=== PATIENT | female | born 1940 | race African-American/Black ===

== ENCOUNTER 2018-05-01 05:37 | Outpatient (CLI) | payer MEDICARE, MEDICAID ==
[2018-05-01 13:43] LABS: Bilirubin Small (Negative); Blood, Urine Negative (Negative); Clarity CLEAR (Clear); Glucose, Urine (Dipstick) Negative (Negative); Leukocyte Moderate (Negative); Nitrite Negative (Negative); Protein, Urine (Dipstick) 30 mg/dL (Neg-Trace); Specific Gravity, Urine 1.037 (1.002-1.036)
[2018-05-01 13:44] LABS: #Eosinphils 0.1 thou/uL (0.0-0.7); #Lymphocytes 1.6 thou/uL (1.20-3.40); #Monocytes 0.5 thou/uL (0.11-0.59); #Neutrophils 4.6 thou/uL (1.40-6.50); %Basophils 0.3 % (0.0-1.0); %Eosinophils 1.5 % (0.0-10.0); %Lymphocytes 23.7 % (21.0-51.0); %Monocytes 7.4 % (0.0-10.0); %Neutrophils 67.1 % (42.0-75.0); Hemoglobin 12.1 g/dL (12.0-16.0); Mean Corpuscular HGB CONC 32.1 g/dL (32.0-36.0); Mean Corpuscular Hemoglobin 27.8 pg (27.0-31.0); Mean Corpuscular Volume 86.5 fL (78.0-98.0); Mean Platelet Volume 9.6 fL (7.4-10.4); Platelet Count 214 thou/uL (130-400); RBC Distribution Width 13.6 % (11.5-14.5); Red Blood Cell (RBC) Count 4.36 mill/uL (4.20-5.40); White Blood Cell (WBC) Count 6.8 thou/uL (4.8-10.8)
[2018-05-01 13:49] LABS: Prothrombin Time 13.5 SEC (12.0-14.7)
[2018-05-01 13:50] LABS: Pathc Cast-AUWi Flag 5.66 (0-2.49)
[2018-05-01 14:01] LABS: Bacteria/HPF 1+ HPF (None Seen); Hyaline Casts/LPF 7-10 HYALINE CAST LPF (0-3 Hyaline); Manual Microscopic Reviewed? No Path Casts Seen; Renal Epithelial None Seen HPF (0-3); Transitional Epithelial NONE SEEN HPF (0-3)
[2018-05-01 14:11] LABS: Anion Gap 14 mmol/L (10-20); BUN (Urea Nitrogen) 22 mg/dL (9.8-20.1); Calc. Creatinine Clearance 0 mL/min (70-130); Calcium 10.4 mg/dL (7.8-10.44); Carbon Dioxide 26 mmol/L (23-31); Chloride 103 mmol/L (98-107); Estimated GFR-MDRD 52; Glucose 88 mg/dL (83-110); Potassium 3.3 mmol/L (3.5-5.1); Sodium 140 mmol/L (136-145)
== END 2018-05-01 05:38 | disposition home or self-care (01) ==
LOC: LABBT 05:37
PROVIDERS: ATTEND Orthopaedic Surgery
DX: Z01.818 Encounter for other preprocedural examination (principal); M16.11 Unilateral primary osteoarthritis, right hip
CPT/HCPCS: 80048; 81001; 85025; 85610; 87086; 93005; 93010

== ENCOUNTER 2018-05-01 08:00 | Inpatient (IN) | payer MEDICARE, MEDICAID ==
--- NOTE | 2018-05-08 14:39 | HP ---
HISTORY OF PRESENT ILLNESS: The patient is a 77-year-old female with a long history of progressive degenerative arthritis of both hips, right greater than left. There has been no injury. She has had progressive problems aside rest restriction of activities and use of a walker, anti-inflammatory medications, and lifestyle adjustments. The patient is not interfering with day-to-day activities including walking, getting dressed, and sleeping. She has had previous lumbar injections by Dr. Burgos without relief. PAST HISTORY: The patient is otherwise in good health. She has a history of hyperlipidemia, hypertension, previous breast cancer, and reflux. CURRENT MEDICATIONS: Include: 1. Lisinopril. 2. Norvasc. 3. Ultracet. 4. Hydrochlorothiazide. 5. Gabapentin. ALLERGIES: SHE IS ALLERGIC TO STATINS. FAMILY HISTORY: Otherwise unremarkable. SOCIAL HISTORY: Otherwise unremarkable. REVIEW OF SYSTEMS: Otherwise unremarkable. PHYSICAL EXAMINATION: GENERAL: Elderly female. HEENT: Unremarkable. NECK: Supple. CHEST: Clear. HEART: Regular rate and rhythm. ABDOMEN: Soft and nontender. PELVIC: Deferred. RECTAL: Deferred. BREASTS: Deferred. EXTREMITIES: Pertinent findings to her hips; leg lengths were equal. There is tenderness in the anterior hip bilaterally right greater than left. There is decreased range of motion and groin pain with internal rotation of both hips, right greater than left. There is an antalgic gait. NEUROVASCULAR: Intact. Straight leg raising is negative. Reflexes are symmetrically diminished. DIAGNOSTIC STUDIES: X-rays of the pelvis and both hips reveal severity of degenerative arthritis of both hips with no joint space remaining, quite changes are slightly greater on the right. There has been significant progression from previous x-rays done in 2016. IMPRESSION: 1. Degenerative arthritis of both hips, right greater than left. 2. History of hypertension. PLAN: Right total hip replacement. She will eventually require staged left total hip replacement. The nature of the surgery, length, recovery, and potential complications such as infection, loss of motion, incomplete relief, neurovascular injury, thromboembolic phenomena, leg-length discrepancy, possible transfusion, and need for revision have been discussed in detail. Job ID: [id number]
[2018-05-12] MEDS ORDERED: Sodium Chloride 0.9% 100 ML ONE (07:28)
[2018-05-12] MEDS ORDERED: Tranexamic Acid 1,000 MG/10 ML VIAL ONE ×2 (07:28→11:57)
[2018-05-12] MEDS ORDERED: CEFAZOLIN 2 GM/50 ML BAG ONE (07:28)
[2018-05-12] MEDS ORDERED: diphenhydrAMINE 50 MG/ML VIAL IM PRN (08:15)
[2018-05-12] MEDS ORDERED: Hydrocerin (Eucerin) Cream 120 gm Jar TOP PRN (08:15)
[2018-05-12] MEDS ORDERED: Naloxone HCl 0.4 mg/ml Vial IV PRN (08:15)
[2018-05-12] MEDS ORDERED: traMADol HCl 50 MG TAB PO PRN ×2 (08:15)
[2018-05-12] MEDS ORDERED: diphenhydrAMINE 25 MG CAP PO PRN ×2 (08:15→14:48)
[2018-05-12] MEDS ORDERED: Promethazine HCl 25 MG/ML VIAL IM PRN ×2 (08:15→11:58)
[2018-05-12] MEDS ORDERED: diphenhydrAMINE 50 MG/ML VIAL IVP PRN (08:15)
[2018-05-12] MEDS ORDERED: Zolpidem Tartrate 5 MG TAB PO PRN ×2 (08:15→14:48)
[2018-05-12] MEDS ORDERED: Ondansetron PF 4 MG/2 ML Vial IVP PRN ×2 (08:15→14:48)
[2018-05-12] MEDS ORDERED: Promethazine HCl 25 MG SUPP PR PRN (08:15)
[2018-05-12] MEDS ORDERED: Naloxone HCl 0.4 mg/ml Vial IVP PRN (08:15)
[2018-05-12] MEDS ORDERED: Bupivacaine 0.25% 10 ML VIAL EPIDURAL PRN (08:15)
[2018-05-12] MEDS ORDERED: Ropivacaine 0.2% HCl/PF 20 ML ONE (09:52)
[2018-05-12] MEDS ORDERED: Fentanyl 100 MCG/2 ML VIAL ONE ×2 (11:57→12:42)
[2018-05-12] MEDS ORDERED: Promethazine HCl 25 MG/ML VIAL SLOW IVP PRN ×2 (11:58→14:48)
[2018-05-12] MEDS ORDERED: Ondansetron HCl/PF 4 MG/2 ML Vial IVP PRN (11:58)
[2018-05-12] MEDS ORDERED: Fentanyl/Bupivacaine 100 ML EPIDURAL ONE (12:00)
[2018-05-12] MEDS ORDERED: Tranexamic Acid 1,000 MG in Sodium Chloride 0.9% 100 ML IVPB SCH ×2 (12:00→16:15)
[2018-05-12] MEDS ORDERED: ePHEDrine/0.9% NaCl/PF SYRINGE 50 mg/10 ml ONE (13:21)
--- NOTE | 2018-05-12 14:24 | RAD ---
TWO VIEWS RIGHT HIP: INDICATION: Postoperative evaluation. FINDINGS: There is a right hip arthroplasty without acute hardware complication. Expected procedural findings are seen regionally. IMPRESSION: Postoperative right hip. POS: [facility]
[2018-05-12] MEDS ORDERED: Fentanyl 100 MCG/2 ML VIAL SLOW IVP PRN ×2 (14:48)
[2018-05-12] MEDS ORDERED: CEFAZOLIN/Water 2 GM/20 ML SYRINGE SLOW IVP SCH (14:48)
[2018-05-12] MEDS ORDERED: HYDROcodone/Acetaminophen 10/325 mg Tablet PO PRN ×2 (14:48)
[2018-05-12] MEDS ORDERED: Vancomycin HCl 1 GM in Sodium Chloride 0.9% 250 ML 300 ML IVPB SCH (14:48)
[2018-05-12] MEDS ORDERED: Acetaminophen 325 MG TAB PO PRN (14:48)
[2018-05-12 15:24] VITALS: BMI 28.1
--- NOTE | 2018-05-12 16:05 | OP ---
DATE OF PROCEDURE: 05/12/2018 PROCESS MAINTENANCE TECHNICIAN: Sara Lance PA-C ANESTHESIA: General plus epidural. PREOPERATIVE DIAGNOSIS: Degenerative arthritis, right hip. POSTOPERATIVE DIAGNOSIS: Degenerative arthritis, right hip. PROCEDURES PERFORMED: Right total hip replacement with uncemented Vandemere titanium acetabular component 58 mm with X3 polyethylene insert, and uncemented Vandemere Accolade femoral stem 3.5 with 132 degree neck angle and -5 mm neck length, 36 mm metal head, and repair of hairline iatrogenic fracture of calcar of the femur with D[employer] Cable. DESCRIPTION OF PROCEDURE: After satisfactory anesthesia was induced in the supine position, the patient was placed in the lateral decubitus position. This position was held with hip positioning device. Sequential compression device was used on the nonoperative leg throughout the procedure. The patient's right hip was then prepped and draped in routine sterile fashion. Hip was approached through a lateral curvilinear incision centered over the greater trochanter, carried down through the subcutaneous tissues, bleeding points were controlled with Bovie cautery. IT band and gluteal fascia were split in-line with the skin incision. A direct lateral approach to the hip joint was accomplished by dividing the anterior third of the gluteus medius and minimus tendons with the Bovie cautery and reflecting this as a single flap anteromedially along with the vastus lateralis. Anterior capsulectomy was performed. The hip dislocated anteriorly. There was marked degenerative arthritis of the hip with large areas of exposed bone. Femoral neck was osteotomized with oscillating saw using a trial prosthesis as a guide. The acetabulum was exposed and cleaned of all soft tissue and debris and large rim osteophytes. It was then reamed in sequence have been subchondral bone to a total of 57 mm. It was felt that a 58 mm Vandemere titanium outer shell could be placed in a press-fit fashion. It was hammered into position. It was good fit stability of the rim. Few more small osteophytes were removed from the rim and the permanent X3 polyethylene liner was snapped in position and the proximal femur exposed. It was then rasped in sequence to accept a #3.5 Accolate femoral rasp. Trial reduction with the 132 degree neck angle trunnion and a -5 mm 36 mm neck length femoral head gave appropriate size fit and stability. The trial components removed. The permanent 3.5 Accolade femoral stem was then hammered in position. During the final seating, a small hairline fracture occurred along the calcar area. This extended perhaps 1 to 1.5 cm. Did not appear to go down the shaft. It appeared to be stable, but I elected to fix this with a [employer] eGifter cable using the appropriate guide cerclage cable was placed and then tightened and the crimper used to hold the fixation in place and then the two ends of the cable were cut off using the appropriate instrument. This appeared to give good stable fixation. The permanent -5 mm neck length, 36 mm metal head was then placed on the trunnion. Hip again reduced and found to be stable. The femoral component was stable as was the small hairline fracture site. The wound was copiously irrigated with pulsatile lavage. The abductors were repaired with interrupted #2 Vicryl. IT band and gluteal fascia were closed with interrupted #2 Vicryl and running #2 Quill. Subcutaneous tissues were closed with a running 0 Quill suture and the skin closed with running subcuticular 3-0 Monoderm and SurgiSeal skin adhesive. Sterile dressing was applied. The patient turned in supine position and a pillow placed between her legs. Sequential compression device was applied to the operative leg and she was awakened, taken to the recovery room in stable condition. There were no apparent intraoperative complications other than the small iatrogenic fracture of the femur, which was repaired as mentioned above. Estimated blood loss was 250 mL. She was taken to recovery room in stable condition. Job ID: [id number]
[2018-05-12] MEDS ORDERED: Amlodipine 10 MG TAB PO SCH (16:15)
[2018-05-12] MEDS ORDERED: Aspirin 81 mg Enteric Coated Tablet PO SCH (16:15)
[2018-05-12] MEDS ORDERED: Ferrous Gluconate 324 MG TAB PO SCH (16:30)
[2018-05-12] MEDS: CEFAZOLIN 2 GM/50 ML-DEXTROSE 2 GM in Premix Bag 1 BAG IVPB SCH (16:31)
[2018-05-12] MEDS: Sodium Chloride 0.9% 1,000 ML IV SCH (16:31)
[2018-05-12] MEDS: HYDROcodone/Acetaminophen 5/325 mg Tablet PO PRN ×2 (16:32→23:40)
[2018-05-12] MEDS ORDERED: Rocuronium Bromide 10 MG/ML (10ML VIAL) ONE (16:35)
[2018-05-12] MEDS ORDERED: PHENYLEPHRINE-NS 100 MCG/ML 10 ML SYRINGE ONE (16:35)
[2018-05-12] MEDS ORDERED: Ondansetron PF 4 MG/2 ML Vial ONE (16:35)
[2018-05-12] MEDS ORDERED: Dexamethasone 20 MG/5 ML VIAL ONE (16:35)
[2018-05-12] MEDS ORDERED: Glycopyrrolate 0.2 MG/ML 5 ML SYRINGE ONE (16:35)
[2018-05-12] MEDS ORDERED: PROPOFOL 200 MG/20 ML VIAL ONE (16:35)
[2018-05-12] MEDS ORDERED: Lidocaine 1% PF 5 ML VIAL ONE (16:35)
[2018-05-12] MEDS ORDERED: Vancomycin HCl 1 GM in Premix Bag 1 BAG IVPB SCH (20:00)
[2018-05-12] MEDS: Aspirin 81 mg Enteric Coated Tablet PO SCH (20:12)
[2018-05-12] MEDS: Rosuvastatin 20 MG TAB PO SCH (20:12)
[2018-05-13] MEDS: CEFAZOLIN 2 GM/50 ML-DEXTROSE 2 GM in Premix Bag 1 BAG IVPB SCH (00:30)
[2018-05-13] MEDS: Sodium Chloride 0.9% 1,000 ML IV SCH ×2 (00:33→09:29)
[2018-05-13] MEDS: Fentanyl/Bupivacaine 100 ML EPIDURAL SCH ×2 (04:18→21:42)
[2018-05-13] MEDS: HYDROcodone/Acetaminophen 5/325 mg Tablet PO PRN ×4 (05:12→22:09)
[2018-05-13 06:41] LABS: Hemoglobin 9.1 g/dL (12.0-16.0); Mean Corpuscular HGB CONC 32.1 g/dL (32.0-36.0); Mean Corpuscular Volume 87.1 fL (78.0-98.0); Mean Platelet Volume 9.4 fL (7.4-10.4); Platelet Count 158 thou/uL (130-400); RBC Distribution Width 13.4 % (11.5-14.5); Red Blood Cell (RBC) Count 3.27 mill/uL (4.20-5.40); White Blood Cell (WBC) Count 8.3 thou/uL (4.8-10.8)
--- NOTE | 2018-05-13 07:23 | PDOC.PN ---
- Subjective Encounter Start Date: 05/13/18 Encounter Start Time: 08:10 -: old records requested/rev consulted for medical management admitted for hip replacement pain controlled with pain meds Patient seen and examined. No new complaints. No overnight events - Objective MAR Reviewed: Yes Vital Signs & Weight: Vital Signs (12 hours) Temp Pulse Resp BP Pulse Ox 05/13/18 04:30 98.5 F 88 16 144/61 H 99 05/13/18 00:00 99.2 F 87 18 146/62 H 99 05/12/18 20:00 99.5 F 85 18 125/60 98 Weight Weight 169 lb I&O: 05/12/18 05/13/18 05/14/18 06:59 06:59 06:59 Intake Total 1900 Output Total 1000 Balance 900 Result Diagrams: 05/13/18 06:13 Additional Labs: old [facility] record reviewed Radiology Reviewed by me: Yes (hip xray) Phys Exam - Physical Examination Constitutional: NAD HEENT: PERRLA, moist MMs, sclera anicteric Neck: no JVD, supple Respiratory: no wheezing, no rales, no rhonchi Cardiovascular: RRR, no significant murmur, no rub Gastrointestinal: soft, non-tender, no distention, positive bowel sounds Musculoskeletal: no edema, pulses present virk+, surgical site with dressing, epidural in place Neurological: non-focal, normal sensation, moves all 4 limbs Lymphatic: no nodes Psychiatric: normal affect, A&O x 3 Skin: no rash, normal turgor Dx/Plan (1) Status post total hip replacement, right Code(s): Z96.641 - PRESENCE OF RIGHT ARTIFICIAL HIP JOINT Status: Acute (2) Anemia, normocytic normochromic Code(s): D64.9 - ANEMIA, UNSPECIFIED Status: Chronic (3) Dyslipidemia Code(s): E78.5 - HYPERLIPIDEMIA, UNSPECIFIED Status: Chronic (4) Hypertension Code(s): I10 - ESSENTIAL (PRIMARY) HYPERTENSION Status: Chronic - Plan cont current plan of care, PT/OT * continue aspirin for DVT prophylaxis * add pepcid for GI prophylaxis * code status- full code * medication reviewed as below * symptomatic treatment * pain controlled * epidural as per anesthesia * PT/OT as per Ju protocol * home medication reconciled. Review of Systems - Review of Systems ENT: negative: Ear Pain, Ear Discharge, Nose Pain, Nose Discharge, Nose Congestion, Mouth Pain, Mouth Swelling, Throat Pain, Throat Swelling, Other Respiratory: negative: Cough, Dry, Shortness of Breath, Hemoptysis, SOB with Excertion, Pleuritic Pain, Sputum, Wheezing Cardiovascular: negative: chest pain, palpitations, orthopnea, paroxysmal nocturnal dyspnea, edema, light headedness, other Gastrointestinal: negative: Nausea, Vomiting, Abdominal Pain, Diarrhea, Constipation, Melena, Hematochezia, Other Genitourinary: negative: Dysuria, Frequency, Incontinence, Hematuria, Retention , Other Musculoskeletal: negative: Neck Pain, Shoulder Pain, Arm Pain, Back Pain, Hand Pain, Leg Pain, Foot Pain, Other Skin: negative: Rash, Lesions, Baljeet, Bruising, Other - Medications/Allergies Allergies/Adverse Reactions: Allergies Allergy/AdvReac Type Severity Reaction Status Date / Time No Known Allergies Allergy Verified 05/12/18 16:46 Medications: Current Medications Acetaminophen (Tylenol) 650 mg PO Q4H PRN PRN Reason: Headache/Fever or Pain Hydrocodone Bitart/Acetaminophen ([place] 5/325) 1 tab PO Q4H PRN PRN Reason: Mild Pain 0-3 Last Admin: 05/12/18 16:32 Dose: 1 tab Hydrocodone Bitart/Acetaminophen ([place] 5/325) 2 tab PO Q4H PRN PRN Reason: For Moderate Pain 4-6 Last Admin: 05/13/18 05:12 Dose: 2 tab Amlodipine Besylate (Norvasc) 10 mg PO DAILY [facility] Aspirin (Ecotrin) 81 mg PO BID [facility] Last Admin: 05/12/18 20:12 Dose: 81 mg Diphenhydramine HCl (Benadryl) 25 mg PO Q3H PRN PRN Reason: Itching Diphenhydramine HCl (Benadryl) 25 mg IM Q3H PRN PRN Reason: Itching Diphenhydramine HCl (Benadryl) 25 mg IVP Q3H PRN PRN Reason: Itching Diphenhydramine HCl (Benadryl) 25 mg PO Q6H PRN PRN Reason: Itching Emollient Cream (Hydrocerin Cream) 0 gm TOP PRN PRN PRN Reason: Itching Ferrous Gluconate (Fergon) 324 mg PO BID [facility] Hydrochlorothiazide (Hydrochlorothiazide) 12.5 mg PO DAILY [facility] Fentanyl Citrate (Fentanyl/Bupivacaine) 100 mls @ 0 mls/hr EPIDURAL INF [facility] Last Admin: 05/13/18 04:18 Dose: 100 mls Sodium Chloride (Normal Saline 0.9%) 1,000 mls @ 100 mls/hr IV .Q10H [facility] Last Admin: 05/13/18 00:33 Dose: 1,000 mls Iron/Minerals/Multivitamins (Theragran M) 1 tab PO DAILY [facility] Miscellaneous Information (Communication Order-Pharmacy) 1 each FS ASDIR [facility] Naloxone HCl (Narcan) 0.2 mg IV Q5MIN PRN PRN Reason: RR <=8 OR OBTUNDED/UNAROUSABLE Naloxone HCl (Narcan) 0.1 mg IVP Q15MIN PRN PRN Reason: URINARY RETENTION Ondansetron HCl (Zofran) 4 mg IVP Q6H PRN PRN Reason: Nausea/Vomiting Promethazine HCl (Phenergan) 12.5 mg IM Q4H PRN PRN Reason: Nausea Promethazine HCl (Phenergan Suppository) 25 mg IN Q4H PRN PRN Reason: Nausea/Vomiting Rosuvastatin Calcium (Crestor) 40 mg PO HS [facility] Last Admin: 05/12/18 20:12 Dose: 40 mg Senna/Docusate Sodium (Senokot S) 2 tab PO BID [facility] Sodium Chloride (Flush - Normal Saline) 10 ml IVF PRN PRN PRN Reason: Saline Flush Tramadol HCl (Ultram) 50 mg PO Q6H PRN PRN Reason: Mild Pain 1-3 Tramadol HCl (Ultram) 100 mg PO Q6H PRN PRN Reason: Moderate Pain 4-6 Zolpidem Tartrate (Ambien) 5 mg PO HSPRN PRN PRN Reason: Insomnia
[2018-05-13] MEDS: Senokot S 8.6-50 MG TAB PO SCH ×2 (09:17→21:49)
[2018-05-13] MEDS: Multivitamin W/ Minerals 1 TAB PO SCH (09:17)
[2018-05-13] MEDS: Amlodipine 10 MG TAB PO SCH (09:18)
[2018-05-13] MEDS: Hydrochlorothiazide 25 MG TAB PO SCH (09:18)
[2018-05-13] MEDS: Ferrous Gluconate 324 MG TAB PO SCH ×2 (09:18→21:49)
[2018-05-13] MEDS: Aspirin 81 mg Enteric Coated Tablet PO SCH ×2 (15:47→21:48)
[2018-05-13] MEDS ORDERED: Lorazepam 1 MG TAB PO PRN (20:38)
[2018-05-13] MEDS ORDERED: Lorazepam 2 MG/ML VIAL SLOW IVP SCH (20:45)
[2018-05-13] MEDS: Rosuvastatin 20 MG TAB PO SCH (21:48)
[2018-05-14] MEDS: Sodium Chloride 0.9% 1,000 ML IV SCH ×3 (02:42→19:57)
[2018-05-14 07:50] LABS: Hemoglobin 8.7 g/dL (12.0-16.0); Mean Corpuscular HGB CONC 31.7 g/dL (32.0-36.0); Mean Corpuscular Hemoglobin 27.7 pg (27.0-31.0); Mean Corpuscular Volume 87.3 fL (78.0-98.0); Mean Platelet Volume 9.8 fL (7.4-10.4); Platelet Count 160 thou/uL (130-400); RBC Distribution Width 13.6 % (11.5-14.5); Red Blood Cell (RBC) Count 3.14 mill/uL (4.20-5.40); White Blood Cell (WBC) Count 9.7 thou/uL (4.8-10.8)
[2018-05-14] MEDS: Aspirin 81 mg Enteric Coated Tablet PO SCH ×2 (07:57→20:03)
[2018-05-14] MEDS: Senokot S 8.6-50 MG TAB PO SCH ×2 (07:57→20:03)
[2018-05-14] MEDS: Amlodipine 10 MG TAB PO SCH (07:58)
[2018-05-14] MEDS: Hydrochlorothiazide 25 MG TAB PO SCH (07:58)
[2018-05-14] MEDS: Ferrous Gluconate 324 MG TAB PO SCH ×2 (07:59→20:03)
[2018-05-14] MEDS: Multivitamin W/ Minerals 1 TAB PO SCH (07:59)
[2018-05-14] MEDS: HYDROcodone/Acetaminophen 5/325 mg Tablet PO PRN ×3 (08:01→20:02)
--- NOTE | 2018-05-14 11:06 | PDOC.PN ---
- Subjective Encounter Start Date: 05/14/18 Encounter Start Time: 08:10 Patient seen and examined. No new complaints. No overnight events - Objective Resuscitation Status - Order Detail: 05/13/18 10:32 Resuscitation Status Routine Resuscitation Status: FULL: Full Resuscitation MAR Reviewed: Yes Vital Signs & Weight: Vital Signs (12 hours) Temp Pulse Resp BP BP Pulse Ox 05/14/18 08:00 98 05/14/18 07:58 70 144/62 H 05/14/18 07:34 99.4 F 84 16 144/62 H 98 05/14/18 07:08 97 05/14/18 04:16 99.4 F 70 16 117/62 97 05/14/18 00:00 99.4 F 83 18 147/64 H 96 Weight Admit Weight 169 lb Weight 169 lb I&O: 05/13/18 05/14/18 05/15/18 06:59 06:59 06:59 Intake Total 1900 1300 480 Output Total 1000 900 550 Balance 900 400 -70 Result Diagrams: 05/14/18 06:11 Phys Exam - Physical Examination Constitutional: NAD HEENT: PERRLA, moist MMs, sclera anicteric Neck: no JVD, supple Respiratory: no wheezing, no rales, no rhonchi Cardiovascular: RRR, no significant murmur, no rub Gastrointestinal: soft, non-tender, no distention, positive bowel sounds Musculoskeletal: no edema, pulses present Neurological: non-focal, normal sensation, moves all 4 limbs Lymphatic: no nodes Psychiatric: normal affect, A&O x 3 Skin: no rash, normal turgor Dx/Plan (1) Status post total hip replacement, right Code(s): Z96.641 - PRESENCE OF RIGHT ARTIFICIAL HIP JOINT Status: Acute (2) Anemia, normocytic normochromic Code(s): D64.9 - ANEMIA, UNSPECIFIED Status: Chronic (3) Dyslipidemia Code(s): E78.5 - HYPERLIPIDEMIA, UNSPECIFIED Status: Chronic (4) Hypertension Code(s): I10 - ESSENTIAL (PRIMARY) HYPERTENSION Status: Chronic - Plan cont current plan of care, PT/OT * continue aspirin for DVT prophylaxis * medication reviewed as below * symptomatic treatment * pain controlled * epidural as per anesthesia * PT/OT as per Ju protocol. * discharge as per primary team Review of Systems - Review of Systems ENT: negative: Ear Pain, Ear Discharge, Nose Pain, Nose Discharge, Nose Congestion, Mouth Pain, Mouth Swelling, Throat Pain, Throat Swelling, Other Respiratory: negative: Cough, Dry, Shortness of Breath, Hemoptysis, SOB with Excertion, Pleuritic Pain, Sputum, Wheezing Cardiovascular: negative: chest pain, palpitations, orthopnea, paroxysmal nocturnal dyspnea, edema, light headedness, other Gastrointestinal: negative: Nausea, Vomiting, Abdominal Pain, Diarrhea, Constipation, Melena, Hematochezia, Other Genitourinary: negative: Dysuria, Frequency, Incontinence, Hematuria, Retention , Other Musculoskeletal: negative: Neck Pain, Shoulder Pain, Arm Pain, Back Pain, Hand Pain, Leg Pain, Foot Pain, Other Skin: negative: Rash, Lesions, Baljeet, Bruising, Other - Medications/Allergies Allergies/Adverse Reactions: Allergies Allergy/AdvReac Type Severity Reaction Status Date / Time No Known Allergies Allergy Verified 05/12/18 16:46 Medications: Current Medications Acetaminophen (Tylenol) 650 mg PO Q4H PRN PRN Reason: Headache/Fever or Pain Hydrocodone Bitart/Acetaminophen ([place] 5/325) 1 tab PO Q4H PRN PRN Reason: Mild Pain 0-3 Last Admin: 05/14/18 08:01 Dose: 1 tab Hydrocodone Bitart/Acetaminophen ([place] 5/325) 2 tab PO Q4H PRN PRN Reason: For Moderate Pain 4-6 Last Admin: 05/13/18 22:09 Dose: 2 tab Amlodipine Besylate (Norvasc) 10 mg PO DAILY [facility] Last Admin: 05/14/18 07:58 Dose: 10 mg Aspirin (Ecotrin) 81 mg PO BID [facility] Last Admin: 05/14/18 07:57 Dose: 81 mg Diphenhydramine HCl (Benadryl) 25 mg PO Q3H PRN PRN Reason: Itching Diphenhydramine HCl (Benadryl) 25 mg IM Q3H PRN PRN Reason: Itching Diphenhydramine HCl (Benadryl) 25 mg IVP Q3H PRN PRN Reason: Itching Diphenhydramine HCl (Benadryl) 25 mg PO Q6H PRN PRN Reason: Itching Emollient Cream (Hydrocerin Cream) 0 gm TOP PRN PRN PRN Reason: Itching Ferrous Gluconate (Fergon) 324 mg PO BID [facility] Last Admin: 05/14/18 07:59 Dose: 324 mg Hydrochlorothiazide (Hydrochlorothiazide) 12.5 mg PO DAILY [facility] Last Admin: 05/14/18 07:58 Dose: 12.5 mg Fentanyl Citrate (Fentanyl/Bupivacaine) 100 mls @ 0 mls/hr EPIDURAL INF [facility] Last Admin: 05/13/18 21:42 Dose: 100 mls Sodium Chloride (Normal Saline 0.9%) 1,000 mls @ 100 mls/hr IV .Q10H [facility] Last Admin: 05/14/18 02:42 Dose: Not Given Iron/Minerals/Multivitamins (Theragran M) 1 tab PO DAILY [facility] Last Admin: 05/14/18 07:59 Dose: 1 tab Lorazepam (Ativan) 1 mg PO Q6H PRN PRN Reason: Anxiety/Agitation Miscellaneous Information (Communication Order-Pharmacy) 1 each FS ASDIR [facility] Naloxone HCl (Narcan) 0.2 mg IV Q5MIN PRN PRN Reason: RR <=8 OR OBTUNDED/UNAROUSABLE Naloxone HCl (Narcan) 0.1 mg IVP Q15MIN PRN PRN Reason: URINARY RETENTION Ondansetron HCl (Zofran) 4 mg IVP Q6H PRN PRN Reason: Nausea/Vomiting Promethazine HCl (Phenergan) 12.5 mg IM Q4H PRN PRN Reason: Nausea Promethazine HCl (Phenergan Suppository) 25 mg [place] Q4H PRN PRN Reason: Nausea/Vomiting Rosuvastatin Calcium (Crestor) 40 mg PO HS [facility] Last Admin: 05/13/18 21:48 Dose: 40 mg Senna/Docusate Sodium (Senokot S) 2 tab PO BID [facility] Last Admin: 05/14/18 07:57 Dose: 2 tab Sodium Chloride (Flush - Normal Saline) 10 ml IVF PRN PRN PRN Reason: Saline Flush Tramadol HCl (Ultram) 50 mg PO Q6H PRN PRN Reason: Mild Pain 1-3 Tramadol HCl (Ultram) 100 mg PO Q6H PRN PRN Reason: Moderate Pain 4-6 Zolpidem Tartrate (Ambien) 5 mg PO HSPRN PRN PRN Reason: Insomnia
[2018-05-14] MEDS: Rosuvastatin 20 MG TAB PO SCH (20:03)
[2018-05-15] MEDS: HYDROcodone/Acetaminophen 5/325 mg Tablet PO PRN (02:53)
[2018-05-15] MEDS: Sodium Chloride 0.9% 1,000 ML IV SCH (05:12)
[2018-05-15 05:15] VITALS: TEMP 98.6
[2018-05-15 08:13] VITALS: BP 147/58
[2018-05-15] MEDS: Hydrochlorothiazide 25 MG TAB PO SCH (08:16)
[2018-05-15] MEDS: Multivitamin W/ Minerals 1 TAB PO SCH (08:17)
[2018-05-15] MEDS: Senokot S 8.6-50 MG TAB PO SCH ×2 (08:18→08:22)
[2018-05-15] MEDS: Ferrous Gluconate 324 MG TAB PO SCH (08:18)
[2018-05-15] MEDS: Aspirin 81 mg Enteric Coated Tablet PO SCH (08:18)
[2018-05-15] MEDS: Amlodipine 10 MG TAB PO SCH (08:18)
[2018-05-15 08:21] LABS: Hemoglobin 9.8 g/dL (12.0-16.0); Mean Corpuscular HGB CONC 31.9 g/dL (32.0-36.0); Mean Corpuscular Hemoglobin 28.1 pg (27.0-31.0); Mean Corpuscular Volume 88.2 fL (78.0-98.0); Mean Platelet Volume 10.2 fL (7.4-10.4); Platelet Count 157 thou/uL (130-400); RBC Distribution Width 13.4 % (11.5-14.5); Red Blood Cell (RBC) Count 3.49 mill/uL (4.20-5.40); White Blood Cell (WBC) Count 8.9 thou/uL (4.8-10.8)
--- NOTE | 2018-05-15 10:22 | PDOC.PN ---
- Subjective Encounter Start Date: 05/15/18 Encounter Start Time: 08:20 Patient seen and examined. No new complaints. No overnight events - Objective Resuscitation Status - Order Detail: 05/13/18 10:32 Resuscitation Status Routine Resuscitation Status: FULL: Full Resuscitation MAR Reviewed: Yes Vital Signs & Weight: Vital Signs (12 hours) Temp Pulse Resp BP BP Pulse Ox 05/15/18 08:18 87 147/58 H 05/15/18 07:35 98.6 F 87 18 147/58 H 97 05/15/18 04:00 98.6 F 89 16 129/62 96 Weight Admit Weight 169 lb Weight 169 lb I&O: 05/14/18 05/15/18 05/16/18 06:59 06:59 06:59 Intake Total 1300 1230 Output Total 900 1850 Balance 400 -620 Result Diagrams: 05/15/18 08:05 Phys Exam - Physical Examination Constitutional: NAD HEENT: PERRLA, moist MMs, sclera anicteric Neck: no JVD, supple Respiratory: no wheezing, no rales, no rhonchi Cardiovascular: RRR, no significant murmur, no rub Gastrointestinal: soft, non-tender, no distention, positive bowel sounds Musculoskeletal: no edema, pulses present Neurological: non-focal, normal sensation, moves all 4 limbs Lymphatic: no nodes Psychiatric: normal affect, A&O x 3 Skin: no rash, normal turgor Dx/Plan (1) Status post total hip replacement, right Code(s): Z96.641 - PRESENCE OF RIGHT ARTIFICIAL HIP JOINT Status: Acute (2) Anemia, normocytic normochromic Code(s): D64.9 - ANEMIA, UNSPECIFIED Status: Chronic (3) Dyslipidemia Code(s): E78.5 - HYPERLIPIDEMIA, UNSPECIFIED Status: Chronic (4) Hypertension Code(s): I10 - ESSENTIAL (PRIMARY) HYPERTENSION Status: Chronic - Plan cont current plan of care * medication reviewed as below * symptomatic treatment * see discharge paulo. Review of Systems - Review of Systems ENT: negative: Ear Pain, Ear Discharge, Nose Pain, Nose Discharge, Nose Congestion, Mouth Pain, Mouth Swelling, Throat Pain, Throat Swelling, Other Respiratory: negative: Cough, Dry, Shortness of Breath, Hemoptysis, SOB with Excertion, Pleuritic Pain, Sputum, Wheezing Cardiovascular: negative: chest pain, palpitations, orthopnea, paroxysmal nocturnal dyspnea, edema, light headedness, other Gastrointestinal: negative: Nausea, Vomiting, Abdominal Pain, Diarrhea, Constipation, Melena, Hematochezia, Other Genitourinary: negative: Dysuria, Frequency, Incontinence, Hematuria, Retention , Other Musculoskeletal: negative: Neck Pain, Shoulder Pain, Arm Pain, Back Pain, Hand Pain, Leg Pain, Foot Pain, Other Skin: negative: Rash, Lesions, Baljeet, Bruising, Other - Medications/Allergies Allergies/Adverse Reactions: Allergies Allergy/AdvReac Type Severity Reaction Status Date / Time No Known Allergies Allergy Verified 05/12/18 16:46 Medications: Current Medications Acetaminophen (Tylenol) 650 mg PO Q4H PRN PRN Reason: Headache/Fever or Pain Hydrocodone Bitart/Acetaminophen ([place] 5/325) 1 tab PO Q4H PRN PRN Reason: Mild Pain 0-3 Last Admin: 05/14/18 08:01 Dose: 1 tab Hydrocodone Bitart/Acetaminophen ([place] 5/325) 2 tab PO Q4H PRN PRN Reason: For Moderate Pain 4-6 Last Admin: 05/15/18 02:53 Dose: 2 tab Amlodipine Besylate (Norvasc) 10 mg PO DAILY [facility] Last Admin: 05/15/18 08:18 Dose: 10 mg Aspirin (Ecotrin) 81 mg PO BID [facility] Last Admin: 05/15/18 08:18 Dose: 81 mg Diphenhydramine HCl (Benadryl) 25 mg PO Q3H PRN PRN Reason: Itching Diphenhydramine HCl (Benadryl) 25 mg IM Q3H PRN PRN Reason: Itching Diphenhydramine HCl (Benadryl) 25 mg IVP Q3H PRN PRN Reason: Itching Diphenhydramine HCl (Benadryl) 25 mg PO Q6H PRN PRN Reason: Itching Emollient Cream (Hydrocerin Cream) 0 gm TOP PRN PRN PRN Reason: Itching Ferrous Gluconate (Fergon) 324 mg PO BID [facility] Last Admin: 05/15/18 08:18 Dose: 324 mg Hydrochlorothiazide (Hydrochlorothiazide) 12.5 mg PO DAILY [facility] Last Admin: 05/15/18 08:16 Dose: 12.5 mg Fentanyl Citrate (Fentanyl/Bupivacaine) 100 mls @ 0 mls/hr EPIDURAL INF [facility] Last Admin: 05/13/18 21:42 Dose: 100 mls Sodium Chloride (Normal Saline 0.9%) 1,000 mls @ 100 mls/hr IV .Q10H [facility] Last Admin: 05/15/18 05:12 Dose: Not Given Iron/Minerals/Multivitamins (Theragran M) 1 tab PO DAILY [facility] Last Admin: 05/15/18 08:17 Dose: 1 tab Lorazepam (Ativan) 1 mg PO Q6H PRN PRN Reason: Anxiety/Agitation Miscellaneous Information (Communication Order-Pharmacy) 1 each FS ASDIR [facility] Naloxone HCl (Narcan) 0.2 mg IV Q5MIN PRN PRN Reason: RR <=8 OR OBTUNDED/UNAROUSABLE Naloxone HCl (Narcan) 0.1 mg IVP Q15MIN PRN PRN Reason: URINARY RETENTION Ondansetron HCl (Zofran) 4 mg IVP Q6H PRN PRN Reason: Nausea/Vomiting Promethazine HCl (Phenergan) 12.5 mg IM Q4H PRN PRN Reason: Nausea Promethazine HCl (Phenergan Suppository) 25 mg NM Q4H PRN PRN Reason: Nausea/Vomiting Rosuvastatin Calcium (Crestor) 40 mg PO HS [facility] Last Admin: 05/14/18 20:03 Dose: 40 mg Senna/Docusate Sodium (Senokot S) 2 tab PO BID [facility] Last Admin: 05/15/18 08:22 Dose: Not Given Sodium Chloride (Flush - Normal Saline) 10 ml IVF PRN PRN PRN Reason: Saline Flush Tramadol HCl (Ultram) 50 mg PO Q6H PRN PRN Reason: Mild Pain 1-3 Tramadol HCl (Ultram) 100 mg PO Q6H PRN PRN Reason: Moderate Pain 4-6 Zolpidem Tartrate (Ambien) 5 mg PO HSPRN PRN PRN Reason: Insomnia
--- NOTE | 2018-05-15 11:44 | DIS ---
DATE OF ADMISSION: 05/12/2018 DATE OF DISCHARGE: 05/15/2018 PRIMARY CARE PHYSICIAN: Dr. Adrienne Christie. DISCHARGE DISPOSITION: Home. PRIMARY DISCHARGE DIAGNOSIS: Status post right total hip replacement. SECONDARY DISCHARGE DIAGNOSES: 1. Hypertension. 2. Dyslipidemia. 3. Normocytic normochromic anemia. PRIMARY PROCEDURE/OPERATION: Dr. Gonzalez did right hip replacement on May 12, 2018. RADIOLOGICAL INVESTIGATION: Hip x-ray. SIGNIFICANT LABORATORY DATA: WBC 8.9, hemoglobin 9.8, and platelet 157. DISCHARGE MEDICATIONS: 1. Amlodipine 10 mg daily. 2. [place] 5 one or two tablet p.o. q.6 hourly p.r.n. 3. Crestor 40 mg p.o. bedtime. 4. Aspirin 81 mg p.o. b.i.d. CONTRAINDICATION: None. CODE STATUS: Full code. INPATIENT GLOBAL PROFESSIONAL: Dr. Gonzalez was primary while in hospital. Sound Team was consulted for medical comanagement. TEST RESULTS PENDING ON DISCHARGE: None. ALLERGIES: NO KNOWN DRUG ALLERGIES. DISCHARGE PLAN: Posthospital, the patient has appointment with Dr. Kelechi Gonzalez on June 03, 2018, at 10:30 a.m. The patient will follow up with primary care physician in 1 week. HOSPITAL COURSE: A 77-year-old female, who has underlying osteoarthritis, who failed all conservative treatment options for her right osteoarthritis of hip and that is why she opted for hip replacement. The patient was admitted electively by Dr. Gonzalez for right total hip replacement, which was done on May 12, 2018, without any complication. Postoperatively, Sound Team was consulted for medical comanagement. The patient's all medical problems remained stable. While in hospital, we continued all her home medication as well as upon discharge, we continued her home medication. While in hospital, she had epidural block and she did very well with PT and OT as per [facility] protocol. Her hospital course was completely uncomplicated. The patient is seen and examined at bedside today. Please see my progress note from today for further detail. Primary Team is planning to discharge her today and we will sign off. Job ID: [id number]
== END 2018-05-15 12:23 | disposition home health service (06) | DRG 470 ==
LOC: SURG A 05-12 07:02 → SJJU 05-12 14:59
PROVIDERS: ADMIT Orthopaedic Surgery; ATTEND Orthopaedic Surgery
PROC: 0SR902A Replacement of Right Hip Joint with Metal on Polyethylene Synthetic Substitute, Uncemented, Open Approach (ICD-10-PCS; principal; 2018-05-12)
PROC: 3E0T3BZ Introduction of Anesthetic Agent into Peripheral Nerves and Plexi, Percutaneous Approach (ICD-10-PCS; 2018-05-12)
DX: M16.0 Bilateral primary osteoarthritis of hip (principal); I10 Essential (primary) hypertension; E78.5 Hyperlipidemia, unspecified; K21.9 Gastro-esophageal reflux disease without esophagitis; Z85.3 Personal history of malignant neoplasm of breast; Z88.8 Allergy status to other drugs, medicaments and biological substances; D64.9 Anemia, unspecified; Z87.891 Personal history of nicotine dependence
CPT/HCPCS: 36415; 85027; C1776; J1100; J2001; J2060; J2405; J2704; J2795; J3010; J3370; J7050

== ENCOUNTER 2021-11-30 16:47 | Emergency (ER) | payer MEDICARE, MEDICAID ==
[~2021-11-30 16:47] MED LIST: Iopamidol-370 76% 500 ML 1 ML ONE
[2021-11-30 19:22] LABS: #Eosinphils 0.2 thou/uL (0.0-0.7); #Lymphocytes 1.3 thou/uL (1.20-3.40); #Monocytes 0.8 thou/uL (0.11-0.59); #Neutrophils 4.3 thou/uL (1.40-6.50); %Basophils 0.5 % (0.0-1.0); %Lymphocytes 19.8 % (21.0-51.0); %Monocytes 12.2 % (0.0-10.0); %Neutrophils 64.6 % (42.0-75.0); Hemoglobin 11.3 g/dL (12.0-16.0); Mean Corpuscular HGB CONC 32.1 g/dL (32.0-36.0); Mean Corpuscular Hemoglobin 27.8 pg (27.0-31.0); Mean Corpuscular Volume 86.8 fL (78.0-98.0); Mean Platelet Volume 8.7 fL (7.4-10.4); Platelet Count 227 thou/uL (130-400); RBC Distribution Width 13.7 % (11.5-14.5); Red Blood Cell (RBC) Count 4.08 mill/uL (4.20-5.40); White Blood Cell (WBC) Count 6.7 thou/uL (4.8-10.8)
[2021-11-30 19:43] LABS: ALT (SGPT) Less than 7 U/L (8-55); AST (SGOT) 13 U/L (5-34); Albumin 3.9 g/dL (3.4-4.8); Alkaline Phosphatase 92 U/L (40-110); Anion Gap 14 mmol/L (10-20); BUN (Urea Nitrogen) 24 mg/dL (9.8-20.1); Bilirubin, Total 0.3 mg/dL (0.2-1.2); Calc. Creatinine Clearance 0 mL/min (70-130); Calcium 9.7 mg/dL (7.8-10.44); Carbon Dioxide 29 mmol/L (23-31); Chloride 102 mmol/L (98-107); Estimated GFR 25; Globulin 3.6 g/dL (2.4-3.5); Glucose 91 mg/dL (83-110); Lipase 33 U/L (8-78); Potassium 3.2 mmol/L (3.5-5.1); Protein, Total 7.5 g/dL (5.8-8.1); Sodium 142 mmol/L (136-145)
[2021-11-30 21:19] LABS: Anion Gap 14 mmol/L (10-20); BUN (Urea Nitrogen) 24 mg/dL (9.8-20.1); Calc. Creatinine Clearance 0 mL/min (70-130); Calcium 9.7 mg/dL (7.8-10.44); Carbon Dioxide 29 mmol/L (23-31); Chloride 104 mmol/L (98-107); Estimated GFR 26; Glucose 89 mg/dL (83-110); Potassium 3.7 mmol/L (3.5-5.1); Sodium 143 mmol/L (136-145)
== END 2021-11-30 23:08 | disposition home or self-care (01) ==
LOC: ERS 16:47
DX: N17.9 Acute kidney failure, unspecified (principal); R55 Syncope and collapse; E78.5 Hyperlipidemia, unspecified; I10 Essential (primary) hypertension; Z87.891 Personal history of nicotine dependence
CPT/HCPCS: 36415; 71045; 71275; 80053; 83690; 83880; 84484; 85025; 93005; Q9967

== ENCOUNTER 2022-06-11 10:15 | Outpatient (CLI) | payer MEDICARE, OTHER | END 2022-06-11 10:16 | disposition home or self-care (01) | LOC: BICULT 10:15 | PROVIDERS: ATTEND Internal Medicine Nephrology | DX: N18.30 Chronic kidney disease, stage 3 unspecified (principal) | CPT/HCPCS: 76770 ==